=== PATIENT | male | born 1950 | race Caucasian/White ===

== ENCOUNTER 2018-07-02 14:19 | Emergency (ER) | payer OTHER ==
[~2018-07-02] VITALS: Ht 180.3 cm; Wt 97.5 kg
[~2018-07-02 14:19] MED LIST: TUSSI-PRES LIQ118 ML PO
== END 2018-07-02 19:47 | disposition home or self-care (01) ==
LOC: ER 14:19
DX: M25.572 Pain in left ankle and joints of left foot (principal)

== ENCOUNTER 2019-04-07 14:43 | Emergency (ER) | payer OTHER ==
[~2019-04-07] VITALS: Ht 180.3 cm; Wt 95.3 kg
== END 2019-04-07 19:08 | disposition home or self-care (01) ==
LOC: ER 14:43
DX: M25.572 Pain in left ankle and joints of left foot (principal); M77.52 Other enthesopathy of left foot and ankle

== ENCOUNTER 2021-03-06 13:03 | Emergency (ER) | payer OTHER ==
[~2021-03-06] VITALS: Ht 180.3 cm; Wt 98.4 kg
[2021-03-06] MEDS ORDERED: KETO10TA2 PO (15:56)
[2021-03-06] MEDS ORDERED: LEVOFLOXACIN500 MG PO (15:56)
[2021-03-06] MEDS ORDERED: TYLENOL ARTHRI650 MG (16:03)
== END 2021-03-06 16:23 | disposition home or self-care (01) ==
LOC: ER 13:03
DX: L03.115 Cellulitis of right lower limb (principal); M79.671 Pain in right foot

== ENCOUNTER 2023-10-10 07:08 | Outpatient (CLI) | payer OTHER ==
[~2023-10-10 07:08] MED LIST changes: +KETO10TA2 PO; +LEVOFLOXACIN500 MG PO; +TYLENOL ARTHRI650 MG
== END 2023-10-10 07:09 | disposition home or self-care (01) ==
LOC: NUCLEAR 07:08
PROVIDERS: ATTEND Internal Medicine
DX: I25.10 Atherosclerotic heart disease of native coronary artery without angina pectoris (principal)

== ENCOUNTER 2025-03-09 00:24 | Emergency (ER) | payer OTHER ==
[~2025-03-09] VITALS: Ht 180.3 cm; Wt 98.9 kg
[2025-03-09] MEDS ORDERED: TOPROL XL25 M1 (00:36)
[2025-03-09] MEDS ORDERED: 0.9 % SODIUM CHLORIDE 1,000 ML IV STA (01:23)
[2025-03-09] MEDS ORDERED: KETOROLAC TROMETHAMINE 30 MG VIAL IV STA (01:24)
[2025-03-09] MEDS ORDERED: KETOROLAC TROMETHAMINE 30 MG VIAL ONE (01:36)
[2025-03-09 02:20] LABS: BASO % 0.4 % (0.1-1.2); EOS # 0.01 (0.04-0.54); EOS % 0.1 % (0.7-7.0); HEMATOCRIT 39.6 % (40.1-51.0); LYMPH # 0.37 (1.18-3.74); LYMPH % 3.8 % (19.3-53.1); MEAN CORPUSCULAR HEMOGLOBIN 28.7 pg (25.6-32.2); MONO # 0.93 (0.24-0.82); MONO % 9.6 % (4.7-12.5); NEUT # 8.34 (1.56-6.13); NEUT % 85.9 % (34.0-71.1); PLATELET COUNT 237 K/uL (163-369); RED BLOOD COUNT 4.53 M/uL (4.63-6.08); RED CELL DISTRIBUTION WIDTH 13.9 % (11.6-14.4)
[2025-03-09 02:37] LABS: ALBUMIN 3.5 gm/dL (3.4-5.0); BILIRUBIN TOTAL 0.38 mg/dL (0.3-1.2); CALCIUM 8.7 mg/dL (8.5-10.1); CREATININE SERUM 1.44 mg/dL (0.70-1.30); GFR 48.09; GLOBULINA 3.2 G/DL (2.4-3.5); POTASSIUM 4.43 mEq/L (3.5-5.1); TOTAL PROTEIN 6.7 gm/dL (6.4-8.2)
[2025-03-09 03:06] LABS: COVID-19 AG POSITIVE (NEGATIVE); INFLUENZA A AG NEGATIVE (NEGATIVE); INFLUENZA B AG NEGATIVE (NEGATIVE)
== END 2025-03-09 04:11 | disposition home or self-care (01) ==
LOC: ER 00:24
DX: U07.1 COVID-19 (principal); I10 Essential (primary) hypertension

== ENCOUNTER 2025-03-20 13:47 | Emergency (ER) | payer OTHER ==
[~2025-03-20] VITALS: Ht 180.3 cm; Wt 98.4 kg
[~2025-03-20 13:47] MED LIST changes: +TOPROL XL25 M1
[2025-03-20] MEDS ORDERED: CEFTRIAXONE SODIUM 1,000 MG VIAL IV STA (15:29)
[2025-03-20] MEDS ORDERED: KETOROLAC TROMETHAMINE 15 MG VIAL IV STA (15:29)
[2025-03-20] MEDS ORDERED: CEFTRIAXONE SODIUM 1,000 MG VIAL ONE (15:29)
[2025-03-20] MEDS ORDERED: KETOROLAC TROMETHAMINE 30 MG VIAL ONE (15:29)
== END 2025-03-20 17:50 | disposition home or self-care (01) ==
LOC: ER 13:47
DX: M76.821 Posterior tibial tendinitis, right leg (principal); M77.31 Calcaneal spur, right foot; M85.871 Other specified disorders of bone density and structure, right ankle and foot; I10 Essential (primary) hypertension